=== PATIENT | male | born 1995 ===

== ENCOUNTER 2019-02-07 15:38 | Emergency (ER) | payer OTHER ==
[2019-02-07 16:20] VITALS: RESP 18; TEMP 98.8
[2019-02-07 16:32] LABS: URINE BILIRUBIN NEGATIVE (NEGATIVE); URINE BLOOD NEGATIVE (NEGATIVE); URINE GLUCOSE (UA) NEGATIVE (NEGATIVE); URINE LEUKOCYTE ESTERASE NEGATIVE Leu/uL (NEGATIVE); URINE PROTEIN NEGATIVE mg/dL (<30 mg/dL); URINE UROBILINOGEN 0.2 E.U./dL (<1 E.U./dL)
[2019-02-07 16:35] LABS: URINE APPEARANCE CLEAR (CLEAR); URINE COLOR YELLOW (YELLOW)
--- NOTE | 2019-02-07 16:41 | ED PDOC ---
Arrival/HPI - General Chief Complaint: Male Genitourinary Time Seen by Provider: 02/07/19 15:45 Historian: Patient - History of Present Illness Narrative History of Present Illness (Text): 02/07/19 18:39 A 23 year old male, with no significant past medical history, presents to the ED complaining of genital rash since this morning. Patient reports rash is associated with burning to the tip of his penis during urination and is located to head and shaft of penis, described as "red dots." Patient has not had similar symptoms in the past. He is currently sexually active with 1 female partner and admits to not using protection during sex. Denies fevers, chills, hematuria, abdominal pain, nausea, vomiting, back pain, testicular pain/swelling, penile discharge, sore throat, or any other associated symptoms. Time/Duration: Other (This morning) Symptom Onset: Sudden Symptom Course: Unchanged Activities at Onset: Light Context: Home Past Medical History - Provider Review Nursing Documentation Reviewed: Yes - Psychiatric Hx Psychophysiologic Disorder: No Hx Substance Use: No Family/Social History - Physician Review Nursing Documentation Reviewed: Yes Family/Social History: Unknown Family HX Smoking Status: Never Smoked Hx Alcohol Use: Yes Frequency of alcohol use: Socially Hx Substance Use: No Allergies/Home Meds Allergies/Adverse Reactions: Allergies No Known Allergies Allergy (Verified 02/07/19 16:20) Review of Systems - Physician Review All systems were reviewed & negative as marked: Yes - Review of Systems Constitutional: Normal. absent: Fevers ENT: Normal. absent: Sore Throat, Rhinorrhea Respiratory: Normal. absent: SOB, Cough Cardiovascular: Normal. absent: Chest Pain, Palpitations, Syncope Gastrointestinal: Normal. absent: Abdominal Pain, Nausea, Vomiting Genitourinary Male: Other (Burning to tip of penis during urination). absent: Hematuria Musculoskeletal: Normal. absent: Back Pain, Neck Pain Skin: Rash (Rash to head and shaft of penis) Neurological: Normal. absent: Headache, Dizziness Physical Exam Vital Signs Reviewed: Yes Vital Signs Temp Pulse Resp BP Pulse Ox 02/07/19 16:16 98.8 F 69 18 137/83 98 Temperature: Afebrile Blood Pressure: Normal Pulse: Regular Respiratory Rate: Normal Appearance: Positive for: Well-Appearing, Non-Toxic, Comfortable Pain Distress: Mild Mental Status: Positive for: Alert and Oriented X 3 - Systems Exam Head: Present: Atraumatic, Normocephalic Pupils: Present: PERRL Extroacular Muscles: Present: EOMI Conjunctiva: Present: Normal Mouth: Present: Moist Mucous Membranes Neck: Present: Normal Range of Motion. No: Meningeal Signs Respiratory/Chest: Present: Clear to Auscultation, Good Air Exchange. No: Respiratory Distress, Accessory Muscle Use Cardiovascular: Present: Regular Rate and Rhythm, Normal S1, S2, Peripheal Pulses Present Abdomen: No: Tenderness Genitourinary Male: Present: Lesions (multiple small erythematous vesicles to dorsal penis; small 3mm tender ulceration just dorsal to urethral opening ). No: Circumcised Penis, Penile Discharge, Testicle Tenderness, Penile Swelling, Testicle Swelling Back: No: CVA Tenderness Upper Extremity: Present: Normal Inspection, Normal ROM Lower Extremity: Present: Normal Inspection, Normal ROM Neurological: Present: GCS=15, Speech Normal, Motor Func Grossly Intact, Gait Normal Skin: Present: Warm, Dry, Normal Color Psychiatric: Present: Alert, Oriented x 3, Normal Insight, Normal Concentration Medical Decision Making ED Course and Treatment: Initial Plan: * UA, culture * GC/Chlamydia * Rocephin * Azithromycin Genital lesions suspicious for genital herpes. Will treat with Valtrex. Advised PMD and urologist followup. Pt counseled on safe sex practices and the risks of STIs. Advised to abstain from sexual activity until followup and to inform partners if tests are positive so they can be tested and treated as well. Diagnostic testing results and plan of care discussed with patient. Strict instructions given regarding prescription use, importance of followup, and signs/symptoms to return to ER including fever, abdominal pain, vomiting, or any other new/worsening symptoms. Pt verbalized understanding of discussion. Patient is A&Ox3, ambulating with steady gait, with vital signs stable for discharge. - Lab Interpretations Lab Results: Urine Color Yellow (YELLOW) 02/07/19 16:15 Urine Appearance Clear (CLEAR) 02/07/19 16:15 Urine pH 6.0 (4.7-8.0) 02/07/19 16:15 Ur Specific Nucla 1.025 (1.005-1.035) 02/07/19 16:15 Urine Protein Negative mg/dL (<30 mg/dL) 02/07/19 16:15 Urine Glucose (UA) Negative mg/dL (NEGATIVE) 02/07/19 16:15 Urine Ketones Negative mg/dL (NEGATIVE) 02/07/19 16:15 Urine Blood Negative (NEGATIVE) 02/07/19 16:15 Urine Nitrate Negative (NEGATIVE) 02/07/19 16:15 Urine Bilirubin Negative (NEGATIVE) 02/07/19 16:15 Urine Urobilinogen 0.2 E.U./dL (<1 E.U./dL) 02/07/19 16:15 Ur Leukocyte Esterase Negative Nilda/uL (NEGATIVE) 02/07/19 16:15 I have reviewed the lab results: Yes - Scribe Statement The provider has reviewed the documentation as recorded by the Madi Short Provider Scribe Attestation: All medical record entries made by the Scribe were at my direction and personally dictated by me. I have reviewed the chart and agree that the record accurately reflects my personal performance of the history, physical exam, medical decision making, and the department course for this patient. I have also personally directed, reviewed, and agree with the discharge instructions and disposition. Disposition/Present on Arrival - Present on Arrival Any Indicators Present on Arrival: No History of DVT/PE: No History of Uncontrolled Diabetes: No Urinary Catheter: No History of Decub. Ulcer: No History Surgical Site Infection Following: None - Disposition Have Diagnosis and Disposition been Completed?: Yes Diagnosis: Rash of genital area Disposition: HOME/ ROUTINE Disposition Time: 17:30 Patient Plan: Discharge Condition: STABLE Discharge Instructions (ExitCare): Genital Herpes, Chlamydia and Gonorrhea, Screening for Sexually Transmitted Infections Additional Instructions: Valtrex every 12 hours for 10 days Abstain from sexual activity until followup Call Medical Records in 3-4 days for testing results Followup with urologist within 2 days Followup with primary doctor within 2 days Return to ER with any new/worsening symptoms Prescriptions: Valacyclovir HCl [Valtrex] 1,000 mg PO Q12H #20 tablet Referrals: [facility] [Outside] - Follow up with primary Yasmani Pa MD [Staff Provider] - Follow up with primary Gabby Patel MD [Medical Doctor] - Follow up with primary Forms: [facility] (German), WORK NOTE
[2019-02-07] MEDS ORDERED: cefTRIAXone (Rocephin) 250 mg Inj IM STA (16:45)
[2019-02-07 18:30] VITALS: BP 135/79; PULSE 70; O2SAT 100
== END 2019-02-07 18:36 | disposition home or self-care (01) ==
LOC: ED 15:38
DX: R21 Rash and other nonspecific skin eruption (principal)
CPT/HCPCS: 81003; 87086; 87491; 87591; 96372; 99283; J0696